=== PATIENT | male | born 1960 ===

== ENCOUNTER 2016-04-26 11:34 | Emergency (ER) | payer BC ==
[2016-04-26 11:59] VITALS: BP 135/96
[2016-04-26] MEDS ORDERED: Lidocaine 2% PF * 5 ML VIAL ONE (12:07)
[2016-04-26] MEDS ORDERED: Tetan/Diph/Pertus SYR(Tdap)* 0.5 ML SYR(BOOSTRIX) use SYR IM ONE (12:25)
--- NOTE | 2016-04-26 13:07 | UC ---
Laceration HPI - HPI Summary HPI Summary: CUT LEFT INDEX FINGER AT 1030AM WITH [employer] KNIFE. LAST TETANUS 20 YRS AGO. ABLE TO MOVE FINGER. FELT QUEASY WHEN SEEING BLOOD. QUEASINESS RESOLVED. - History Of Current Complaint Chief Complaint: UCLaceration Stated Complaint: FINGER LACERATION Time Seen by Provider: 04/26/16 11:55 Hx Obtained From: Patient, Family/Bulldozer Engineer Laceration Location: Finger - LEFT INDEX Mechanism Of Injury: Sharp Trauma Onset/Duration: Sudden Onset, Lasting Hours, Still Present Severity: Mild Aggravating Factors: Nothing Related History: Dominant Hand Right - Allergies/Home Medications Allergies/Adverse Reactions: Allergies Allergy/AdvReac Type Severity Reaction Status Date / Time No Known Allergies Allergy Verified 04/26/16 11:45 PMH/Surg Hx/FS Hx/Imm Hx Previously Healthy: Yes - Surgical History Surgical History: Yes Surgery Procedure, Year, and Place: Hernia repair 2012 - Family History Known Family History: Positive: Hypertension Negative: Blood Disorder - Social History Occupation: Employed Full-time Alcohol Use: Occasionally Substance Use Type: None Smoking Status (MU): Never Smoked Tobacco - Immunization History Most Recent Influenza Vaccination: 2015/2016 Most Recent Tetanus Shot: unknown Review of Systems Constitutional: Negative Skin: Other - LACERATION LEFT INDEX Eyes: Negative ENT: Negative Respiratory: Negative Cardiovascular: Negative Gastrointestinal: Negative Genitourinary: Negative Motor: Negative Neurovascular: Negative Musculoskeletal: Negative Neurological: Negative Psychological: Negative All Other Systems Reviewed And Are Negative: Yes Physical Exam Triage Information Reviewed: Yes Appearance: Well-Appearing, No Pain Distress, Well-Nourished Vital Signs: Initial Vital Signs Temp 97.7 F 04/26/16 11:46 Pulse 75 04/26/16 11:46 Resp 17 04/26/16 11:46 BP 135/96 04/26/16 11:46 Vital Signs Reviewed: Yes Eye Exam: Normal Eyes: Positive: Conjunctiva Clear ENT Exam: Normal ENT: Positive: Normal ENT inspection, Hearing grossly normal, TMs normal Dental Exam: Normal Neck exam: Normal Neck: Positive: Supple, Nontender Respiratory Exam: Normal Respiratory: Positive: Chest non-tender, Lungs clear, Normal breath sounds, No respiratory distress, No accessory muscle use Cardiovascular Exam: Normal Cardiovascular: Positive: RRR, No Murmur, Pulses Normal Abdominal Exam: Normal Abdomen Description: Positive: Nontender, No Organomegaly Musculoskeletal Exam: Normal Musculoskeletal: Positive: Strength Intact, ROM Intact Neurological Exam: Normal Psychological Exam: Normal Psychological: Positive: Normal Response To Family Skin: Positive: Other - LACERATION LEFT SECOND FINGER Laceration Repair - Laceration Repair 1 Description: Linear - LEFT SECIND FINGER Laceration Size After Repair: Length (cm) - 4, Width (mm) - 4, Depth (mm) - 4 Type Injection: Digital Anesthesia Used: 2.0% Lido Cleansing Completed Via Routine Prep: Yes Irrigation With Pressure Irrigation Device: Yes Closure Material: Sutures - 5 X 4-0 PROLENE Suture Of: Skin Suture Type: Prolene Laceration Course/Dx - Differential Dx - Laceration/Wound Differental Diagnoses: Fracture, Laceration Provider Diagnoses: LACERATION LEFT SECOND FINGER WITH SUTURE REPAIR Discharge - Discharge Plan Condition: Stable Disposition: HOME Patient Education Materials: Finger Laceration (ED) Referrals: Raul Pearson MD [Primary Care Provider] - Additional Instructions: PLEASE HAVE SUTURES REMOVED IN TEN DAYS
== END 2016-04-26 12:59 | disposition home or self-care (01) ==
LOC: UCEAST 11:34
DX: S61.211A Laceration without foreign body of left index finger without damage to nail, initial encounter (principal); W26.0XXA Contact with knife, initial encounter; Y93.9 Activity, unspecified; Y92.9 Unspecified place or not applicable; Z23 Encounter for immunization
CPT/HCPCS: 12002; 90471; 90715; 99201; G0463

== ENCOUNTER 2017-04-14 20:43 | Emergency (ER) | payer BC ==
--- OUTSIDE RECORDS SUMMARY | 2017-04-14 20:51 | XMS REPORT ---
:1960 External Reference #:[id number] Author Organization [facility] Address [address] [place] [address] Phone [phone] Care Team Providers Name Role Phone Raul Pearson MD Care Team Information Allergy Specialist Unavailable Raul Pearson MD Primary Care Physician Unavailable Payers Type Date Identification Numbers Payment Provider Subscriber Commercial Effective: Policy Number: [id number] [employer] Jean Carlos De La Cruz 2014 Group Name: Mauricio Queen o [facility] [address] [address] PayID: [id number] [place] [address] Problems Date Description Provider Status Onset: 12/29/2010 Essential hypertension Raul Pearson M.D. Active Onset: 05/02/2011 Hyperlipidemia Raul Pearson M.D. Active Onset: 05/02/2011 Benign prostatic hypertrophy without Raul Pearson M.D. 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 Cigarette Use Former Cigarette Smoker ETOH Use Social Alcohol Smoking Nonsmoker Daily Caffeine Consumes on average 3 cups of coffee per day Allergies, Adverse Reactions, Alerts Date Description Reaction Status Severity Comments 12/25/2010 NKDA active Medications Medication Date Status Form Strength Qnty SIG Indications Ordering Provider Physical 04/08/ Active treatment M54.89 Chhaya Therapy 2018 and chelsea Huff Afnp-C of L low back pain Naproxen 04/08/ Hx Tablets 500mg 30tabs 1 by mouth M54.89 Chhaya 2018 - twice a day [place]ugio, 04/23/ as needed Afnp- 2017 pain take with food Ramipril 08/12/ Active Capsules 10mg 30caps take one I10 Ratna 2016 capsule by Yair, mouth once [employer] SAL[employer] daily Verapamil HCL 03/29/ Active Caps ER 360mg 30caps take one I10 Ratna ER 2013 24HR capsule by Yair, mouth at [employer] bedtime Ramipril 05/27/ Hx Capsules 10mg 30caps take one I10 Raul F. 2012 - capsule by Michel, 08/12/ mouth once M.D. 2016 daily Verapamil HCL 12/24/ Hx Caps ER 360mg 90caps Take One Dottie SR 2011 - 24HR Capsule By Donna, 03/29/ Mouth At [facility] 2013 Bedtime Verapamil HCL 03/31/ Hx Caps ER 360mg 90caps Take One Raul F. SR 2011 - 24HR Capsule By Michel, 09/10/ Mouth At M.D. 2011 Bedtime Altace 09/01/ Hx Capsules 10mg 30caps Take One 401.9 Raul F. 2010 - Capsule By Michel, 05/27/ Mouth Once M.D. 2012 Daily Levaquin 08/31/ Hx Tablets 750mg 10tabs one po daily 682.6 Dottie 2008 - for 10 days Donna, 09/10/ Afnp-C 2008 Clindamycin 08/31/ Hx Capsules 300mg 40caps 1 po qid x 682.6 Dottie HCL 2008 - 10 days Donna, 09/10/ Afnp-C 2008 Altace 11/24/ Hx Tablets 5mg 90tabs 2 po qd 401.9 Dottie 2006 - Donna, 09/01/ Afnp-C 2010 Altace 11/13/ Hx Capsules 2.5mg 14caps 1 po qd 401.9 Dottie 2006 - Donna, 11/24/ Afnp-C 2007 Verapamil 11/28/ Hx Capsules 360mg 90caps 1 po q hs 401.1 Raul F. Sustained 2005 - Michel, Release 06/17/ M.D. 2012 Verapamil 10/11/ Hx 240mg 90unit one qd Raul F. 2004 - s Michel, 11/28/ M.D. 2006 [facility] 05/30/ Hx 240mg 90unit 1 po qd Nisha R 2004 - s Arley, 10/11/ [employer]-C 2003 [facility] 05/05/ Hx 180mg 30unit 1 po qd at Dottie 2003 - s hs Donna, 05/30/ Afnp-C 2003 Physical 04/25/ Hx treatment Raul Liu Therapy 2004 - and Michel, 05/26/ evaluation Ashwin 2003 of neck pain Vicodin 04/21/ Hx 5/325mg 20unit 1-2 po Chhaya 2003 - s [id number] prn [place], 05/05/ Afnp-C 2003 Hydrocodone/A / Hx Tablets 7.5/500 50tabs 1 po q 4 hrs Unknown pap 0000 - prn for pain 2009 Immunizations CPT Code Status Date Vaccine Lot # [id number] Given 09/25/2012 Tdap Tetanus, W Pertussis [id number] Given 05/07/2006 Tetanus And Diptheria Adult Preservative Free [id number] >[id number] Vital Signs Date Vital Result Comment 04/08/2017 BP Systolic 124 mmHg BP Diastolic 84 mmHg Heart Rate 70 /min Body Temperature 97.8 F Height 67 inches 5'7" Weight 196.38 lb BMI (Body Mass Index) 30.8 kg/m2 11/29/2016 BP Systolic 126 mmHg BP Diastolic 88 mmHg Heart Rate 84 /min Body Temperature 98.1 F Height 67 inches 5'7" Weight 190.12 lb BMI (Body Mass Index) 29.8 kg/m2 08/12/2016 BP Systolic 138 mmHg BP Diastolic 98 mmHg Heart Rate 72 /min Body Temperature 97.7 F Height 67 inches 5'7" Weight 192.00 lb BMI (Body Mass Index) 30.1 kg/m2 05/06/2016 BP Systolic 116 mmHg BP Diastolic 80 mmHg Heart Rate 78 /min Body Temperature 98.1 F Height 67 inches 5'7" Weight 197.00 lb BMI (Body Mass Index) 30.9 kg/m2 04/25/2014 BP Systolic 150 mmHg BP Diastolic 110 mmHg Heart Rate 76 /min Body Temperature 96.5 F Respiratory Rate 14 /min Height 67 inches 5'7" Weight 196.25 lb BMI (Body Mass Index) 30.7 kg/m2 09/25/2012 BP Systolic 130 mmHg BP Diastolic 92 mmHg Heart Rate 78 /min Body Temperature 97.3 F Respiratory Rate 16 /min Height 67 inches 5'7" Weight 190.00 lb BMI (Body Mass Index) 29.8 kg/m2 06/17/2012 BP Systolic 100 mmHg BP Diastolic 78 mmHg Heart Rate 72 /min Height 67 inches 5'7" Weight 190.00 lb BMI (Body Mass Index) 29.8 kg/m2 09/11/2011 BP Systolic 120 mmHg BP Diastolic 86 mmHg Heart Rate 68 /min Body Temperature 98.3 F Height 67 inches 5'7" Weight 197.00 lb BMI (Body Mass Index) 30.9 kg/m2 05/02/2011 BP Systolic 132 mmHg BP Diastolic 88 mmHg Heart Rate 66 /min Body Temperature 96.3 F Height 67 inches 5'7" Weight 189.00 lb BMI (Body Mass Index) 29.6 kg/m2 12/25/2010 BP Systolic 130 mmHg BP Diastolic 90 mmHg Heart Rate 80 /min Body Temperature 97.9 F Respiratory Rate 12 /min Height 67 inches 5'7" Weight 189.00 lb BMI (Body Mass Index) 29.6 kg/m2 06/20/2010 BP Systolic 120 mmHg BP Diastolic 82 mmHg Heart Rate 80 /min Height 67 inches 5'7" Weight 192.00 lb BMI (Body Mass Index) 30.1 kg/m2 02/19/2010 BP Systolic 120 mmHg BP Diastolic 80 mmHg Heart Rate 72 /min Body Temperature 98.3 F Height 67 inches 5'7" Weight 192.00 lb BMI (Body Mass Index) 30.1 kg/m2 08/18/2009 BP Systolic 124 mmHg BP Diastolic 84 mmHg Heart Rate 84 /min Height 67 inches 5'7" Weight 187.00 lb BMI (Body Mass Index) 29.3 kg/m2 08/31/2008 Heart Rate 88 /min Respiratory Rate 20 /min Height 67 inches 5'7" Weight 190.00 lb BMI (Body Mass Index) 29.8 kg/m2 07/25/2008 BP Systolic 120 mmHg BP Diastolic 88 mmHg Heart Rate 88 /min Weight 188.00 lb 06/11/2007 BP Systolic 128 mmHg BP Diastolic 88 mmHg Heart Rate 76 /min Height 67 inches 5'7" Weight 185.00 lb BMI (Body Mass Index) 29.0 kg/m2 12/18/2006 BP Systolic 128 mmHg BP Diastolic 82 mmHg Heart Rate 60 /min Body Temperature 96.7 F Weight 193.00 lb 11/24/2006 BP Systolic 130 mmHg BP Diastolic 90 mmHg Heart Rate 76 /min Body Temperature 97.6 F Weight 197.00 lb 11/13/2006 BP Systolic 132 mmHg BP Diastolic 86 mmHg Heart Rate 68 /min Weight 200.00 lb 11/28/2005 BP Systolic 134 mmHg BP Diastolic 90 mmHg Heart Rate 80 /min Weight 193.00 lb 07/17/2004 BP Systolic 132 mmHg BP Diastolic 90 mmHg Heart Rate 76 /min Weight 199.00 lb 10/12/2003 BP Systolic 140 mmHg BP Diastolic 80 mmHg Heart Rate 116 /min Weight 192.00 lb 05/31/2003 BP Systolic 140 mmHg BP Diastolic 100 mmHg Heart Rate 76 /min Weight 180.00 lb 05/05/2003 BP Systolic 120 mmHg BP Diastolic 100 mmHg Heart Rate 88 /min Weight 184.00 lb 04/21/2003 BP Systolic 136 mmHg BP Diastolic 98 mmHg Heart Rate 88 /min Weight 190.00 lb 10/24/1997 BP Systolic 140 mmHg BP Diastolic 90 mmHg Body Temperature 97.1 F Weight 174.00 lb Results Test Date Test Result H/L Range Note Laboratory test finding 11/29/2016 Free T4 0.78 ng/dL 0.75-1.54 TSH 0.98 mIU/L 0.50-6.00 PSA 1.2 ng/mL 0.0-4.0 LDL, Direct 146 mg/dL High 0-130 Ua - Micro (Fma) 11/29/2016 Appearance clear Color yellow Glucose, Urine (Fma/CMC/CTX) negative Bilirubin negative Ketones negative SP Grav 1.020 Blood small PH 6.5 Protein negative Urobil 0.2 Nitrite negative Leukocytes (Fma/CMC/Centrex) negative WBC (Fma,Centrex) - RBC 1-2 Mucus - /Lpf Epith - /Lpf Bacteria - /Hpf Amorphous - /Lpf Crystals, Fluid (Fma/CMC/CTX) - Z#Comments - Comprehensive Metabolic Prof 11/29/2016 Sodium 139 mEq/L 134-149 Potassium 4.5 mEq/L 3.6-5.5 Chloride 100 mEq/L 94-112 Carbon Dioxide 23 mEq/L 21-32 Glucose 103 mg/dL 70-105 BUN 16 mg/dL 6-26 Creatinine 0.9 mg/dL 0.6-1.4 BUN/Creat Ratio 17.8 CALC 8.0-36.0 Calcium 9.0 mg/dL 8.6-10.2 Total Protein 7.0 g/dL 6.4-8.3 Albumin 4.8 g/dL 3.8-5.5 Globulin 2.2 g/dL 2.0-4.8 A/G Ratio 2.2 CALC 0.6-2.3 Alk. Phosphatase 68 U/L 22-95 Alt (SGPT) 37 U/L High 7-35 1 Ast (Sgot) 31 U/L 5-34 Total Bilirubin 0.7 mg/dL 0.2-1.3 GFR Non- >60 ml/min/1.73m^ >=60 GFR >60 ml/min/1.73m^ >=60 Complete Blood Count 11/29/2016 WBC 5.8 x10^3/UL 3.6-9.6 RBC 5.32 x10^6/UL 3.90-5.70 HGB 16.7 g/dL 12.1-17.2 HCT 49 % 36-50 MCV 92.0 fL 82.2-97.4 MCH 31.3 pg 27.6-33.3 MCHC 34.3 g/dL 33.0-35.5 RDW 14.0 % High 11.6-13.7 PLT 206 x10^3/UL 150-400 MPV 6.8 fL Low 7.4-10.4 Gran # 3.2 x10^3/UL 1.5-7.2 Lymph# 2.3 x10^3/UL 0.7-4.9 [place]# 0.3 x10^3/UL 0.1-0.9 Gran % 53.2 % 42.2-75.2 Lymph % 40.2 % 20.5-51.1 [place]% 6.6 % 1.7-9.3 Lipid Profile 11/29/2016 Cholesterol 231 mg/dL High 120-200 Triglycerides 261 mg/dL High 30-200 HDL Cholesterol 40 mg/dL 30-70 LDL (Calculated) 139 CALC High 0-129 VLDL Cholesterol 52 mg/dL High 0-50 HDL Risk Factor 5.8 CALC High 0.0-4.4 Comprehensive Metabolic Prof 09/11/2011 Albumin 4.5 g/dL 3.8-5.5 Alk. Phos. 61 U/L 22-95 Alt (SGPT) 31 U/L 10-40 Ast (Sgot) 29 U/L 5-34 BUN 21 mg/dL 6-26 Calcium 8.6 mg/dL 8.6-10.2 Chloride 98 mEq/L 94-112 Creatinine 1.2 mg/dL 0.6-1.4 Carbon Dioxide 24 mEq/L 21-32 Glucose 99 mg/dL 70-105 Sodium 138 mEq/L 134-149 Total Bilirubin 0.4 mg/dL 0.2-1.3 Total Protein 6.6 g/dL 6.3-8.1 Potassium 3.9 mEq/L 3.6-5.5 Globulin 2.1 g/dL 2.0-4.8 A/G Ratio 2.2 Calc 0.6-2.2 BUN/Creat Ratio 17.3 Calc 8.0-36.0 Lipid Profile 09/11/2011 Cholesterol 194 mg/dL 120-200 HDL 34 mg/dL 30-70 Triglycerides 265 mg/dL High 30-200 HDL Risk Factor 5.8 CALC High 0.0-4.0 LDL (Calculated) 108 CALC 0-129 2 VLDL (Calculated) 53 mg/dL High 0-50 Laboratory test finding 09/11/2011 Free T4 0.80 ng/dL 0.75-1.54 TSH 0.94 mIU/L 0.50-6.00 PSA 0.80 ng/mL 0.00-4.00 LDL (Direct) 120 mg/dL 0-130 CBC Electronic ([facility]) 09/11/2011 WBC 7.7 3.6-9.6 RBC 4.28 3.90-5.70 Hemoglobin (Fma/CMC/CTX) 13.7 g/dL 12.1 - 17.2 Hematocrit (a/CMC/CTX) 39.2 % 36.1 - 50.3 Platelets 184 10^3/ul 150-400 Lymph% 29.0 20.5-51.1 Mixed% 10.0 Neutrophils % 61.0 Mean Corpuscular Vol 91.6 82.2-97.4 Mean Corpuscular Hemoglobin 32.0 27.6-33.3 Mean Corpuscular Hemo Concen 34.9 32.0-36.0 RDW 13.1 11.6-13.7 Mean Platelet Volume 10.6 6.5-11.0 Comprehensive Metabolic Prof 02/19/2010 Albumin 5.1 g/dL 3.8-5.5 Alk. Phos. 46 U/L 22-95 Alt (SGPT) 40 U/L 10-40 Ast (Sgot) 33 U/L 5-34 BUN 18 mg/dL 6-26 Calcium 9.7 mg/dL 8.6-10.2 Chloride 103 mEq/L 94-112 Creatinine 1.2 mg/dL 0.6-1.4 Carbon Dioxide 22 mEq/L 21-32 Glucose 95 mg/dL 70-105 Sodium 139 mEq/L 134-149 Total Bilirubin 1.3 mg/dL 0.2-1.3 Total Protein 7.8 g/dL 6.3-8.1 Potassium 4.3 mEq/L 3.6-5.5 Globulin 2.7 g/dL 2.0-4.8 A/G Ratio 1.9 Calc 0.6-2.2 BUN/Creat Ratio 15.3 Calc 8.0-36.0 Lipid Profile 02/19/2010 Cholesterol 267 mg/dL High 120-200 HDL 43 mg/dL 30-70 Triglycerides 199 mg/dL 30-200 HDL Risk Factor 6.2 CALC 4.2-7.0 LDL (Calculated) 184 CALC High 0-129 VLDL (Calculated) 40 mg/dL 0-50 Laboratory test finding 02/19/2010 TSH 1.17 mIU/L 0.50-6.00 PSA 0.90 ng/mL 0.00-4.00 Ua - Non Micro (a) 02/19/2010 Appearance CLEAR Color YELLOW Glucose, Urine (Fma/CMC/CTX) NEG Bilirubin NEG Ketones TRACE SP Grav 1.020 Blood NEG PH 7.0 Protein NEG Urobil 0.2 Nitrite NEG Leukocytes (Fma/CMC/Centrex) NEG CBC (a) 02/19/2010 WBC 5.8 3.6-9.6 RBC 5.34 3.90-5.70 Hemoglobin (Fma/CMC/CTX) 16.5 g/dL 12.1 - 17.2 Hematocrit (Fma/CMC/CTX) 49.6 % 36.1 - 50.3 Platelets 218 10^3/ul 150-400 Lymph% 31.2 20.5-51.1 Mixed% 6.0 Neutrophils % 62.8 Mean Corpuscular Vol 93 82.2-97.4 Mean Corpuscular Hemoglobin 30.8 27.6-33.3 Mean Corpuscular Hemo Concen 33.2 33.0-36.0 RDW 12.0 11.6-13.7 Mean Platelet Volume 7.3 Low 7.4-10.4 Laboratory test finding 08/24/2009 TSH 0.63 mIU/L 0.50-6.00 CBC (a) 08/24/2009 WBC 6.0 3.6-9.6 RBC 5.24 3.90-5.70 Hemoglobin (Fma/CMC/CTX) 16.3 g/dL 12.1 - 17.2 Hematocrit (Fma/CMC/CTX) 46.2 % 36.1 - 50.3 Mean Corpuscular Vol 88.2 82.2-97.4 Mean Corpuscular Hemaglobin 31.1 27.6-33.3 Mean Corpuscular Hemo Concen 35.3 33.0-36.0 Platelets 189 10^3/ul 150-400 Lymph% 37.4 20.5-51.1 Mixed% 12.7 Neutrophils % 49.9 RDW 13.9 High 11.6-13.7 Mean Platelet Volume 10.4 7.4-10.4 Lipid Profile 08/24/2009 Cholesterol 239 mg/dL High 120-200 HDL 41 mg/dL 30-70 Triglycerides 124 mg/dL 30-200 HDL Risk Factor 5.8 CALC 4.2-7.0 LDL (Calculated) 173 CALC High 0-129 VLDL (Calculated) 25 mg/dL 0-50 Comprehensive Metabolic Prof 08/24/2009 Albumin 4.8 g/dL 3.8-5.5 Alk. Phos. 52 U/L 22-95 Alt (SGPT) 35 U/L 10-40 Ast (Sgot) 33 U/L 5-34 BUN 16 mg/dL 6-26 Calcium 9.5 mg/dL 8.6-10.2 Chloride 103 mEq/L 94-112 Creatinine 1.1 mg/dL 0.6-1.4 Carbon Dioxide 21 mEq/L 21-32 Glucose 90 mg/dL 70-105 Sodium 138 mEq/L 134-149 Total Bilirubin 0.9 mg/dL 0.2-1.3 Total Protein 7.0 g/dL 6.3-8.1 Potassium 4.0 mEq/L 3.6-5.5 Globulin 2.2 g/dL 2.0-4.8 A/G Ratio 2.2 Calc 0.6-2.2 BUN/Creat Ratio 14.9 Calc 8.0-36.0 Comprehensive Metabolic Prof 11/24/2006 Albumin 4.8 g/dL 3.8-5.5 3 Alk. Phos. 80 U/L 22-95 3 Alt (SGPT) 35 U/L 10-40 3 Ast (Sgot) 27 U/L 5-34 3 BUN 18 mg/dL 6-26 3 Calcium 9.6 mg/dL 8.6-10.2 3 Chloride 103 mEq/L 94-112 3 Creatinine 1.1 mg/dL 0.6-1.4 3 Carbon Dioxide 25 mEq/L 21-32 3 Glucose 103 mg/dL 70-105 3 Sodium 137 mEq/L 134-149 3 Total Bilirubin 1.1 mg/dL 0.2-1.3 3 Total Protein 7.8 g/dL 6.3-8.1 3 Potassium 3.8 mEq/L 3.6-5.5 3 Globulin 3.0 g/dL 2.0-4.8 3 A/G Ratio 1.6 Calc 0.6-2.2 3 BUN/Creat Ratio 15.8 Calc 8.0-36.0 3 Complete Blood Count 11/24/2006 WBC 6.1 x10\\S\\3/uL 3.6-9.6 3 Gran# 3.6 x10\\S\\3/uL 1.5-7.2 3 Gran% 58.6 % 42.2-75.2 3 HCT 46 % 36-50 3 HGB 15.7 g/dL 12.1-17.2 3 Lymph# 2.2 x10\\S\\3/uL 0.7-4.9 3 Lymph% 36.2 % 20.5-51.1 3 MCH 31.6 pg 27.6-33.3 3 MCV 91.8 fL 82.2-97.4 3 MCHC 34.4 g/dL 33.0-35.5 3 Mo# 0.3 x10\\S\\3/uL 0.1-0.9 3 Mo% 5.2 % 1.7-9.3 3 MPV 7.7 fL 7.4-10.4 3 PLT 234 x10\\S\\3/uL 150-400 3 RBC 4.97 x10\\S\\6/uL 3.90-5.70 3 RDW 12.8 % 11.6-13.7 3 Comp Metabolic ([facility]) 06/07/2003 Glucose, Serum (a/CMC/CTX) 95 mg/dL 70- 118 BUN (a/CMC/Centrex) 15 mg/dL 6-26 Creatinine (Fma/CMC/CTX) 0.8 mg/dL 0.6-1.4 BUN/Creatinin Ratio 19.7 8.0-36 Sodium 140 134-149 Potassium 4.2 3.6-5.5 Chloride 99 mEq/L 94-112 Co2 26 21-32 Calcium (Fma/CMC/Centrex) 9.7 mg/dL 8.6-10.0 Total Protein 7.5 g/dL 6.3-8.1 Albumin (a/CMC/Centrex) 4.8 3.8-5.5 Globulin 2.6 2.0-4.8 A/G Ratio (a/CMC) 1.8 0.6-2.2 Alkaline Phosphatase (F/C/CTX) 74 U/L 22-95 Alt (SGPT) (a/CMC/Centrex) 37 10-40 Ast (Sgot) (a/CMC/Centrex) 25 U/mL 5-34 Bilirubin, Total 1.1 mg/dL 0.2-1.3 Lipid Profile ([facility]) 06/07/2003 Cholesterol ([facility]/Centrex) 185 mg/dL 120-200 Triglyceride 183 mg/dL 30-200 HDL-Chol 34 30-70 LDL, Calculated ([facility]) 115 CALC 0-129 VLDL 37 0-50 HDL Risk Factor ([facility]) 5.5 CALC 4.2-7.0 Laboratory test finding 06/07/2003 TSH ([facility]/Centrex) 0.68 uIU/ml 0.5- 6.0 CBC Electronic ([facility]) 06/07/2003 WBC 4.5 3.6-9.6 Lymphocytes 35.5 % 20.5 - 51.1 Monocytes 6.0 % 1.7-9.3 Granulocytes 58.5 % 42.2 - 75.2 Lymphocytes 1.6 10^3/uL 0.7 - 4.9 Monocytes 0.3 10^3/uL 0.1 - 0.9 Granulocytes 2.6 10^3/uL 1.5 - 7.2 RBC 5.23 3.90-5.70 Hemoglobin (Fma/CMC/CTX) 15.9 g/dL 12.1 - 17.2 Hematocrit (Fma/CMC/CTX) 47.5 % 36.1 - 50.3 Mean Corpuscular Vol 90.8 82.2-97.4 Mean Corpuscular Hemaglobin 30.3 27.6-33.3 Mean Corpuscular Hemo Concen 33.4 33.0-35.5 RDW 12.9 11.6-13.7 Platelets 220 10^3/ul 150-400 Mean Platelet Volume 7.2 Low 7.4-10.4 1 RESULTS VERIFIED BY REPEAT ANALYSIS 2 invalid 3 FASTING Procedures Date CPT Code Description Status 11/29/2016 52729 Electrocardiogram Complete Completed 01/15/2013 Colonoscopy Completed 02/19/2010 01699 Electrocardiogram Complete Completed 05/05/2003 42151 Electrocardiogram Complete Completed Encounters Type Date Location Provider CPT E/M Dx Office Visit 11/29/2016 9:00a [facility] Raul Pearson M.D. 16768 I10 E78.4 N40.0 Z00.00 E78.1 Office Visit 08/12/2016 10:00a [facility] Office [place] 66072 I10 Office Visit 05/06/2016 9:30a [facility] Chhaya Mosesalmita, 95104 S61.211A Abbie Z48.02 Office Visit 04/25/2014 10:40a [facility] Raul Pearson M.D. 51475 401.9 600.00 Office Visit 09/25/2012 10:20a [facility] Raul Pearson M.D. 14443 600.00 401.9 V76.41 v06.5 Office Visit 06/17/2012 10:00a [facility] Abbie Baez 37189 401.9 Office Visit 09/11/2011 3:30p Main Office Abbie Baez 40369 550.90 401.9 600.00 272.1 Office Visit 05/02/2011 8:20a Main Office Raul Pearson M.D. 39756 401.9 272.4 600.00 V76.41 Office Visit 12/25/2010 9:00a Main Office Raul Pearson M.D. 06580 401.9 272.4 600.00 Office Visit 06/20/2010 9:15a Main Office Dottie Thompson, Afnp-C 13418 401.9 Office Visit 02/19/2010 8:00a [facility] Raul Pearson M.D. 49308 401.9 272.4 600.00 782.9 V70.0 V76.41 Office Visit 08/18/2009 9:00a [facility] Dottie Thompson, Afnp-C 77801 401.9 V77.91 Office Visit 08/31/2008 4:30p Main Office Dottie Thompson, Afnp-C 39000 682.6 Office Visit 07/25/2008 6:00p Main Office [place] 26714 401.9 Office Visit 06/11/2007 6:00p Main Office Dottie Thompson, Afnp-C 51334 401.9 Office Visit 12/18/2006 1:00p Main Office Dottie Thompson, Afnp-C 08232 401.9 Office Visit 11/24/2006 9:15a Main Office Dottie Thompson, Afnp-C 51730 401.9 Office Visit 11/24/2006 9:00a Main Office Dottie Thompson, Afnp-C 03598 401.9 Office Visit 11/13/2006 1:00p Main Office Dottie Thompson, Afnp-C 80896 401.9 Office Visit 11/28/2005 4:30p [facility] [place] 93053 401.1 Office Visit 07/17/2004 7:00p Main Office Raul Pearson M.D. 29595 784.0 401.1 Office Visit 10/12/2003 9:15a Main Office JOSE Saucedo-C 80066 401.9 Office Visit 05/31/2003 9:00a Main Office Raul Pearson M.D. 95770 784.0 401.1 Office Visit 05/05/2003 10:00a Main Office Dottie Thompson, Bradley-C 12075 401.9 Office Visit 04/21/2003 10:30a Main Office Chhaya Huff, Bradley-C 25533 784.0 Plan of Care 04/08/2017 - Chhaya Huff, Bradley-CM54.89 Other dorsalgiaNew Medication: Physical TherapyNaproxen 500 mgAllComments:~B_~U_Medication Management~b_~u_ Patient Understands medications he's taking? Yes No Are there Barriers to Adherence? Yes No Has the patient been asked about herbal supplements and therapies, and OTC meds? Yes No ~B_~U_Care Plan~b_~u_1. Patient has been queried about patient's goals/preferences and functional/ lifestyle goals at relevant visits. If relevant, describe: na2. Treatment goals as explained to the patient: abovesx resolution , reduce recurrences3. Are there barriers to meeting treatment goals? Yes No If Yes, please describe:4. Self-Management goals as described to the patient: Yes No you are having slow improvementwe will try a small prescription or naproxen rather than the ibuprofen and a PT consult for pain relief and core strengthening ok for local measures like heat / ice and muscle rubs f/u if no better with above rx plan or if sxworsen be mindful of proper body mechanics at your work
[2017-04-14 20:53] VITALS: BP 138/85
[2017-04-14] MEDS ORDERED: Albuterol/Ipratropium NEB.SOL* Albuterol 2.5 MG/Ipratropium 0.5 MG 3 ML INH ONE (21:09)
--- NOTE | 2017-04-14 21:40 | RAD ---
INDICATION: Cough x3 days COMPARISON: None TECHNIQUE: PA and lateral views of the chest were obtained. FINDINGS: The heart and mediastinum are normal in size and contour. The lungs are grossly clear. There is no evidence of large pleural effusion. Degenerative changes of the lumbar spine include loss of intervertebral disc height and mild anterior marginal osteophyte formation. There is no radiographic evidence of free air beneath the diaphragm IMPRESSION: No radiographic evidence of acute cardiopulmonary disease.
[2017-04-14] MEDS ORDERED: Azithromycin TAB* 250 MG PO ONE (22:08)
--- NOTE | 2017-04-14 22:11 | UC ---
Tamiko Davies Emily, scribed for Mark Bowling MD on 04/14/17 at 2109 . Throat Pain/Nasal Bishnu HPI - HPI Summary HPI Summary: This patient is a 57 year old M presenting to urgent care with a chief complaint of sore throat that began 2 days ago. The patient rates the pain 2/10 in severity. Symptoms aggravated by nothing. Symptoms alleviated by nothing. Patient reports myalgia, cough, FLORES, and wheezing. Patient denies fever. Pt reports being recently diagnosed with pneumonia. - History of Current Complaint Chief Complaint: UCRespiratory Stated Complaint: sore throat Hx Obtained From: Patient Onset/Duration: Sudden Onset, Lasting Days, Still Present Severity: Mild Pain Intensity: 2 Pain Scale Used: 0-10 Numeric Cough: Nonproductive Associated Signs & Symptoms: Positive: Wheezing, Other - Positive myalgia, cough , and FLORES. - Allergies/Home Medications Allergies/Adverse Reactions: Allergies Allergy/AdvReac Type Severity Reaction Status Date / Time No Known Allergies Allergy Verified 04/14/17 20:54 PMH/Surg Hx/FS Hx/Imm Hx Previously Healthy: Yes Cardiovascular History: Hypertension Respiratory History: Other Other Respiratory History: Negative asthma - Surgical History Surgical History: Yes Surgery Procedure, Year, and Place: Hernia repair 2012 - Family History Known Family History: Positive: Hypertension Negative: Blood Disorder - Social History Occupation: Employed Full-time Lives: With Family Alcohol Use: Occasionally Substance Use Type: None Smoking Status (MU): Never Smoked Tobacco - Immunization History Most Recent Influenza Vaccination: 2016/2017 Most Recent Tetanus Shot: unknown Review of Systems Constitutional: Other - Negative fever and chills ENT: Sore Throat Respiratory: Cough, Other - Positive wheezing Musculoskeletal: Myalgia Neurological: Headache All Other Systems Reviewed And Are Negative: Yes Physical Exam Triage Information Reviewed: Yes Vital Signs: Initial Vital Signs Temp 98.2 F 04/14/17 20:50 Pulse 97 04/14/17 20:50 Resp 18 04/14/17 20:50 BP 138/85 04/14/17 20:50 Pulse Ox 98 04/14/17 20:50 Vital Signs Reviewed: Yes - Additional Comments General: mildly ill appearing, no pain distress Skin: warm, color reflects adequate perfusion, dry Head: normal Eyes: EOMI, ADELITA ENT: Posterior pharynx mild erythema. Positive rhinorrhea Neck: supple, nontender Respiratory: CTA, breath sounds present Cardiovascular: RRR Abdomen: soft, nontender Bowel: present Musculoskeletal: normal, strength/ROM intact, No pedal edema, no calf tenderness Neurological: normal, sensory/motor intact, A&O x3 Psychological: affect/mood appropriate Diagnostics - Radiology CXR Radiology Interpretation Completed By: Radiologist - CXR reveals, per radiologist, no radiographic evidence of acute cardiopulmonary disease. ED physician has reviewed this radiology report. Throat Pain/Nasal Course/Dx - Differential Dx/Diagnosis Provider Diagnoses: BRONCHITIS Discharge - Discharge Plan Condition: Stable Disposition: HOME Prescriptions: Azithromycin TAB* [Zithromax TAB (Z-LANNY) 250 mg #6 tabs] 250 mg PO DAILY #4 tab Patient Education Materials: Acute Bronchitis (ED) Forms: *School Release Referrals: Raul Pearson MD [Primary Care Provider] - Additional Instructions: FOLLOW UP WITH YOUR DOCTOR. GET RECHECKED FOR ANY WORSENING OF YOUR CONDITION OR QUESTIONS OR CONCERNS. The documentation as recorded by the Tamiko lynn Emily accurately reflects the service I personally performed and the decisions made by me, Mark Bowling MD.
== END 2017-04-14 22:18 | disposition home or self-care (01) ==
LOC: UCEAST 20:43
DX: J40 Bronchitis, not specified as acute or chronic (principal); Z72.89 Other problems related to lifestyle
CPT/HCPCS: 71046; 87502; 87651; 99212; A9270-GY; G0463